=== PATIENT | male | born 1985 | race Caucasian/White ===

== ENCOUNTER 2021-04-06 19:24 | Emergency (ER) | payer BC ==
[~2021-04-06] VITALS: Ht 167.6 cm; Wt 69.9 kg
[2021-04-06] MEDS ORDERED: TAMS0.4C PO (23:40)
[2021-04-06] MEDS ORDERED: KETO10TA2 PO (23:40)
== END 2021-04-06 23:35 | disposition home or self-care (01) ==
LOC: ER 19:24
DX: N20.1 Calculus of ureter (principal); R31.0 Gross hematuria

== ENCOUNTER 2021-04-11 11:31 | Emergency (ER) | payer BC ==
[~2021-04-11] VITALS: Ht 167.6 cm; Wt 70.3 kg
[~2021-04-11 11:31] MED LIST: KETO10TA2 PO; TAMS0.4C PO
[2021-04-11] MEDS ORDERED: AIRDUO RESPICL1 EACH (12:00)
[2021-04-11] MEDS ORDERED: PERCOCET 5-3251 EACH PO (16:21)
[2021-04-11] MEDS ORDERED: CEFUROXIME500 MG PO (16:21)
[2021-04-11] MEDS ORDERED: KETO10TA2 PO (16:21)
[2021-04-11] MEDS ORDERED: DICY20TA PO (16:21)
== END 2021-04-11 17:12 | disposition home or self-care (01) ==
LOC: ER 11:31
DX: N20.1 Calculus of ureter (principal)